=== PATIENT | male | born 1965 | race Caucasian/White ===

== ENCOUNTER → 2016-10-01 | Outpatient (CLI) | payer OTHER ==
[~2016-10-01] VITALS: Ht 170.2 cm; Wt 85.8 kg
[~2016-10-01] MED LIST: HYDROCODONE-AP1 EA11 PO; HYDROCODONE-AP1 EAC6 PO; LIPITOR 20 MG T20 M1 PO; MULTIVITAMINS; NABUMETONE 750750 M1 PO; NORCO 5-325 TA1 EACH PO; RELAFEN750 MG PO; ROXICET 5-5001 EACH PO; SIMVASTATIN80 MG PO; ZANAFLEX2 M2 PO
[2016-10-01 09:31] VITALS: BP 128/85
== END | disposition home or self-care (01) ==
LOC: PAIN 06:48
DX: M54.16 Radiculopathy, lumbar region (principal); Z98.890 Other specified postprocedural states; E78.5 Hyperlipidemia, unspecified; F17.210 Nicotine dependence, cigarettes, uncomplicated